=== PATIENT | male | born 1950 | race Caucasian/White ===

== ENCOUNTER 2020-04-28 11:20 | Outpatient (REF) | payer OTHER, SELFPAY ==
[2020-04-28 14:18] LABS: MANUAL DIFF FLAG NO
[2020-04-28 14:26] LABS: Basophils Absolute Auto 0.1 X10*3/uL (0.0-0.2); Basophils Percent Auto 0.8 % (0-2); Eosinophils Absolute Auto 0.2 X10*3/uL (0.0-0.4); Eosinophils Percent Auto 3.8 % (0-4); Hematocrit 40.8 % (42-52); Hemoglobin 13.6 g/dl (14.0-18.0); Imm Gran Abs Auto 0.01 X10*3/uL (0.00-0.03); Imm Gran Pct Auto 0.2 % (0.0-0.4); Lymphocytes Absolute Auto 1.9 X10*3/uL (1.2-4.9); Lymphocytes Percent Auto 31.8 % (20-40); Mean Corpuscular HGB Conc 33.3 g/dl (31.0-36.0); Mean Corpuscular Hemoglobin 30.5 pg (27.0-33.0); Mean Corpuscular Volume 91.5 fL (80-98); Monocytes Absolute Auto 0.5 X10*3/uL (0.1-1.2); Monocytes Percent Auto 7.9 % (2-11); Neutrophils Absolute Auto 3.4 X10*3/uL (2.0-8.3); Neutrophils Percent Auto 55.5 % (45-73); Platelet Count 185 X10*3/uL (160-400); Red Blood Count 4.46 X10*6/uL (4.60-5.80); White Blood Count 6.1 X10*3/uL (4.8-10.8)
[2020-04-28 15:10] LABS: Alanine Aminotransferase 12 U/L (0-40); Albumin Level 4.3 g/dL (3.5-5.0); Alkaline Phosphatase 35 U/L (39-117); Anion Gap 13 (12-20); Aspartate Amino Transferase 13 U/L (5-37); Bilirubin Total 0.8 mg/dL (0.0-1.0); Blood Urea Nitrogen 18 mg/dL (9-16); Carbon Dioxide 26 mmol/L (22-29); Chloride 106 mmol/L (96-108); Cholesterol 158 mg/dL; Estimated Glomerular Filt Rate > 60; Glucose Fasting 94 mg/dL (60-99); HDL Cholesterol 52 mg/dL; LDL Cholesterol Calculated 94 mg/dl; Potassium 5.2 mmol/l (3.3-5.1); Sodium 140 mmol/L (135-145); Total Protein 6.9 g/dL (6.5-8.0); Triglycerides 64 mg/dL
[2020-05-02 12:13] LABS: Testosterone, Total 252 ng/dL (250-1100)
== END 2020-04-28 11:21 | disposition home or self-care (01) ==
LOC: HO.10HDL 11:20
PROVIDERS: Visit Provider Internal Medicine Medical Oncology
DX: N40.1 Benign prostatic hyperplasia with lower urinary tract symptoms (principal); E78.2 Mixed hyperlipidemia; I10 Essential (primary) hypertension; N41.1 Chronic prostatitis; N62 Hypertrophy of breast
CPT/HCPCS: 36415; 80053; 80061; 84403; 85025

== ENCOUNTER 2020-05-22 11:16 | Outpatient (REF) | payer OTHER, SELFPAY ==
--- NOTE | ~2020-05-22 | MM_ITS ---
EXAMINATION: MM DIAGNOSTIC DIGITAL BREAST TOMOSYNTHESIS, BILATERAL US DIAGNOSTIC ULTRASOUND BREAST, LEFT CLINICAL INFORMATION: 69-year-old male with left retroareolar pain and fullness. No prior breast imaging. Family history breast cancer in father, late 60s, status post mastectomy. COMPARISON: None (current study represents initial baseline exam). TECHNIQUE: Digital breast tomosynthesis is performed in both the craniocaudal and mediolateral oblique views along with computer-aided detection (CAD). Synthesized 2D images are generated from the tomosynthesis. Ultrasound left breast is targeted to the retroareolar and periareolar region. Grayscale imaging and color Doppler are performed without and with harmonics. FINDINGS: The breasts are almost entirely fatty (ACR BI-RADS breast composition Category a). There is mild gynecomastia retroareolar left breast. There is no mass or architectural abnormality. Right breast unremarkable. There are no abnormal calcifications. The axilla and skin contours are unremarkable. No skin thickening or retraction. Ultrasound left breast demonstrates no cystic or solid mass, architectural abnormality, or focal duct ectasia. No skin thickening or edema tracking in the soft tissue planes. Results are discussed with the patient at time of visit. MM/MM tomosynthesis diagnostic BI IMPRESSION: 1. Left: Mild benign left gynecomastia. 2. Right: Right breast unremarkable. ASSESSMENT: BI-RADS 2: Benign RECOMMENDATION: 1. Patient's mild left gynecomastia may be managed based on the clinical impression. 2. Annual clinical breast exam, given the family history breast cancer father.
== END 2020-05-22 11:17 | disposition home or self-care (01) ==
LOC: HO.MAMMO 11:16
PROVIDERS: Visit Provider Internal Medicine Medical Oncology
DX: N62 Hypertrophy of breast (principal)
CPT/HCPCS: 76642; 77062; 77066

== ENCOUNTER 2024-10-15 08:26 | Outpatient (REF) | payer OTHER, SELFPAY | END 2024-10-15 08:27 | disposition home or self-care (01) | LOC: HO.LAB 08:26 | PROVIDERS: PCP Internal Medicine Medical Oncology; Visit Provider Urology | DX: N41.1 Chronic prostatitis (principal); N40.1 Benign prostatic hyperplasia with lower urinary tract symptoms; R33.8 Other retention of urine; N39.0 Urinary tract infection, site not specified | CPT/HCPCS: 51798; 81003; 87086 ==

== ENCOUNTER 2024-10-15 08:26 | Outpatient (AMB) | payer OTHER, SELFPAY ==
--- OUTSIDE RECORDS SUMMARY | 2024-09-06 06:15 | XMS_ITS ---
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 Role Phone Jono Mayorga Primary Care Provider Allergies Allergen (clinical drug ingredient) Drug/Non Drug Allergy documented on EMR Reaction Allergy Type Onset Date Status Iodinated contrast media (substance) Iodinated Diagnostic Agents Unknown Drug Allergy Active Floxin Otic Unknown Drug Allergy Activ e REASON FOR VISIT Acute and chronic prostatitis, Urinary tract infection, Benign prostatic hypertrophy Medications Medication SIG (Take, Route, Frequency, Duration) Notes Start Date End Date Status Methenamine Hippurate 1 GM 1 tablet Orally Twice a day Alvogen only 08/23/2024 Active Ciprofloxacin HCl 500 MG 1 tablet Orally every 12 hrs 08/15/2024 Active predniSONE 20 MG 1 tablet Orally Once a day 11/13/2023 Active Acyclovir 400 MG 1 tablet Orally Twic e a day 02/26/2019 Active Methenamine Hippurate 1 GM 1 tablet Orally Twice a day Active Vitamin C 1000 MG 1 tablet Orally Twic e a day Active Simvastatin 10 MG TAKE 1 TABLET EVENINGS Orally Once a day Active Tamsulosin HCl 0.4 MG TAKE 2 CAPSULE 30 MINUTES AFTER THE SAME MEAL EACH DAY 90 DAUS Active Social History Tobacco Use: Social History Observation Description Date Details (start date - stop date) Former Smoker NA - NA Sex Assigned At : Social History Observation Description Sex Assigned At Male Tobacco Control (Standard) Question Answer Notes Tobacco use: Former smoker Vital Signs Height 77 in 09/06/2024 Weight 232 lbs 09/06/2024 BMI 27.51 kg/m2 09/06/2024 Encounters Encounter Location Date Provider Diagnosis Jono Mayorga III, MD [address] [place] [address] [place] [address] 09/06/2024 Jono Mayorga Benign prostatic hyperplasia with lower urinary tract symptoms N40.1 ; Primary insomnia F51.01 ; Essential hypertension I10 ; Mixed hyperlipidemia E78.2 ; Chronic prostatitis N41.1 ; Overweight (BMI 25.0-29.9) E66.3 and Former smoker Z87.891 Assessments Encounter Date Diagnosis (ICD Code) Assessment Notes Treat ment Notes Treatment Clinical Notes 09/06/2024 Benign prostatic hyperplasia with lower urinary tract symptoms (ICD-10 - N40.1) The urinary frequency and dysuria are beginning to improve. He likely has a recurrent prostate infection and will continue the methamphetamine indefinitely. I have encouraged him to see urology when he returns from [place]. 09/06/2024 Primary insomnia (ICD-10 - F51.01) He has adjusted to this and is doing well. We discussed the use of hypnotics and decided that they were not indicated. 09/06/2024 Essential hypertension (ICD-10 - I10) His blood pressure was 127/77. No change in his medications was needed. I recommended aggressive weight loss and sodium restriction. 09/06/2024 Mixed hyperlipidemia (ICD-10 - E78.2) His lipids are stable and no change in his regimen is necessary. 09/06/2024 Chronic prostatitis (ICD-10 - N41.1) He is on an antibiotic for his latest recurrence. He has resumed his mesalamine. He is doing well. He was given an appointment to return to the office after his trip to [place]. 09/06/2024 Overweight (BMI 25.0-29.9) (ICD-10 - E66.3) His body mass index is 27. We have discussed his diet and nutrition. We made a weight loss strategy to lose weight at a rate of one half of a pound per week. 09/06/2024 Former smoker (ICD-10 - Z87.891) He has a plan to prevent relapse in times of stress and illness. Plan Of Treatment Medication Medication Name Sig Start Date Stop Date Notes Methenamine Hippurate 1 GM 1 tablet Oral ly Twice a day 08/23/2024 Alvogen only Ciprofloxacin HCl 500 MG 1 tablet Orally every 12 hrs 08/15/2024 predniSONE 20 MG 1 tablet Orally Once a day 11/13/2023 Acyclovir 400 MG 1 tablet Orally Twic e a day 02/26/2019 Methenamine Hippurate 1 GM 1 tablet Oral ly Twice a day Vitamin C 1000 MG 1 tablet Orally Twic e a day Simvastatin 10 MG TAKE 1 TABLET EVENIN GS Orally Once a day Tamsulosin HCl 0.4 MG TAKE 2 CAPSULE 30 MINUTES AFTER THE SAME MEAL EACH DAY 90 DAUS Next Appt Details Follow Up: As Scheduled, Yani son: Annual Exam Provider Name:Jono Mayorga, 11/19/2024 09:30:00 AM, [address] [place] [address], [address], [place], [address], Progress Notes * MAKAYLA Star WDOB: [birth year] (73 yo M)Acc No.[id number]:09/06/2024 Patient: Star TAYLOR W Provider: Sonia Mayorga MD :1950 A ge:73 Y S ex:Male Date:09/06/2024 Address:[address] [place], [place] [id number] Subjective: * Chief Complaints: * A cute and chronic prostatitisUrinary tract infectionBenign prostatic hypertrophy * HPI: * : He has been taking the antibiotic faithfully and reports that his pelvic pain and dysuria have improved substantially. He will continue on a medication for the duration. He has a supply of antibiotic to take on his trip to [place] which will be given on Monday, September 09, 2024. Telehealth L ocation of provider rendering services: { ...} [address] [facility] [address] L ocation of patient: a ddress listed in demographics for today's visit P atient identification confirmed using: MODESTA Vitale ame T elehealth method: T elephone only. Patient not visible to care provider. C onsent: P atient verbally consented to treatment, Patient verbally consented to billing insurance company, Patient informed of any privacy concerns related to method of visit T otal time spent with patient (mins) 1 5 * ROS: G eneral/Constitutional: pain o nly normal aches and pains. C hills d enies.?Fatigue a dmits. F ever d enies. E NT: Decreased hearing d enies. R espiratory: Cough d enies. C ardiovascular: Chest pain with exertion d enies. D yspnea on exertion?denies. S hortness of breath d enies. G astrointestinal: Constipation d enies. D ecreased appetite d enies.?Diarrhea d enies. H eartburn d enies. N ausea d enies. R ectal bleeding?denies. V omiting d enies. H ematology: bruising d enies. p etechiae d enies. S wollen glands n one have been noted. G enitourinary: Frequent urination t wice a night. M usculoskeletal: Muscle aches d enies. P ainful joints d enies. S ciatica d enies. W eakness d enies. S kin: Itching d enies. R cliff d enies. S kin lesion(s)?denies. N eurologic: Difficulty speaking d enies. D izziness d enies.?Headache d enies. L ow back pain d enies. P sychiatric: Depressed mood d enies. * Medical History: * Surgical History: c ervical mediastinal exploration with lymph node biopsy for sarcoidosis 1981Appendectomy [facility] 10-06-23No history * Hospitalization/Major Diagno stic Procedure: p rostatitis, acute 07/2018No history * Family History: F ather: 90 yrs, History of male breast cancer treated with mastectomy at the age of 60. M other: 76 yrs, Parkinson's disease, aspiration. 1 brother(s) , 1 sister(s) - healthy. 1 son(s) - healthy. . His father has a history of male breast cancer treated with mastectomy at the age of 60. * Social History: T obacco Use: T obacco Control (Standard) T obacco use: F ormer smoker H melvin lives in [place], [place]. 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 He has been to [place] Garcia for 13 years. He has 1 son from a first marriage, Ashish, who is a captain in the [employer]. He was born in [place], [place] and has lived in [place]. He stopped smoking in high school. 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 He doesn't smoke or drink and eats a lot of vegetables from his garden. The patient walks two miles around his farm daily. He had stopped taking statins three months ago when he lost weight. * Medications: T akingSimvastatin 10 MG Tablet TAKE 1 TABLET EVENINGS Orally Once a day Tamsulosin HCl 0.4 MG Capsule TAKE 2 CAPSULE 30 MINUTES AFTER THE SAME MEAL EACH DAY 90 DAUS Vitamin C 1000 MG Tablet 1 tablet Orally Twice a day predniSONE 20 MG Tablet 1 tablet Orally Once a day Methenamine Hippurate 1 GM Tablet 1 tablet Orally Twice a day , Notes to Pharmacist: Kayla onlyTaking Simvastatin 10 MG Tablet TAKE 1 TABLET EVENINGS Orally Once a day Taking Tamsulosin HCl 0.4 MG Capsule TAKE 2 CAPSULE 30 MINUTES AFTER THE SAME MEAL EACH DAY 90 DAUS Taking Vitamin C 1000 MG Tablet 1 tablet Orally Twice a day Taking predniSONE 20 MG Tablet 1 tablet Orally Once a day Taking Methenamine Hippurate 1 GM Tablet 1 tablet Orally Twice a day , Notes to Pharmacist: Alvogen onlyDiscontinuedCiprofloxacin HCl 500 MG Tablet 1 tablet Orally every 12 hrs Acyclovir 400 MG Tablet 1 tablet Orally Twice a day Methenamine Hippurate 1 GM Tablet 1 tablet Orally Twice a day Medication List reviewed and reconciled with the patientDiscontinued Ciprofloxacin HCl 500 MG Tablet 1 tablet Orally every 12 hrs Discontinued Acyclovir 400 MG Tablet 1 tablet Orally Twice a day Discontinued Methenamine Hippurate 1 GM Tablet 1 tablet Orally Twice a day Medication List reviewed and reconciled with the patient * Allergies: F loxin OticIodinated Diagnostic Agentsno[Allergies Verified] Objective: * Vitals: H t: 77, Wt:232, BMI:27.51, Ht-cm: 195.58, Wt-k.23. Assessment: * Assessment: 1. B enign prostatic hyperplasia with lower urinary tract symptoms - N40.1 (Primary) N otes :The urinary frequency and dysuria are beginning to improve. He likely has a recurrent prostate infection and will continue the methamphetamine indefinitely. I have encouraged him to see urology when he returns from [place]. 2 . P rimary insomnia - F51.01 N otes :He has adjusted to this and is doing well. We discussed the use of hypnotics and decided that they were not indicated. 3 . E ssential hypertension - I10 N otes :His blood pressure was 127/77. No change in his medications was needed. I recommended aggressive weight loss and sodium restriction. 4 . M ixed hyperlipidemia - E78.2 N otes :His lipids are stable and no change in his regimen is necessary. 5 . C hronic prostatitis - N41.1 N otes :He is on an antibiotic for his latest recurrence. He has resumed his mesalamine. He is doing well. He was given an appointment to return to the office after his trip to [place]. 6 . O verweight (BMI 25.0-29.9) - E66.3 N otes :His body mass index is 27. We have discussed his diet and nutrition. We made a weight loss strategy to lose weight at a rate of one half of a pound per week. 7 . F ormer smoker - Z87.891 N otes :He has a plan to prevent relapse in times of stress and illness. Plan: * Treatment: 2. O thers Continue Simvastatin Tablet, 10 MG, TAKE 1 TABLET EVENINGS, Orally, Once a day; C ontinue Tamsulosin HCl Capsule, 0.4 MG, TAKE 2 CAPSULE 30 MINUTES AFTER THE SAME MEAL EACH DAY 90 DAUS; C ontinue Vitamin C Tablet, 1000 MG, 1 tablet, Orally, Twice a day; C ontinue predniSONE Tablet, 20 MG, 1 tablet, Orally, Once a day. * Procedure Codes: 9 8012 SYNCH AUDIO-ONLY EST SF 10 * Preventive Medicine: Counseling: C are goal follow-up plan: Counseling for abnormal BMI given Y es Above Normal BMI Follow-up D ietary needs education S moking/Tobacco Use Patient counseled on the dangers of tobacco use and urged to quit. 0 09/06/2024 * Follow Up: A s Scheduled (Reason: Annual Exam) * Images: * Sign off status: Completed true * Provider: Sonia Mayorga MD Date: 0 09/06/2024 Generated for Leonardo chong/Donna/eTransmitting on: 0 10/15/2024 08:31 AM EDT History and Physical Notes * HPI (History of Present Illness) Category Sub-Category Detail Notes Telehealth Location of [facility] rendering services:: {...} [address] [facility] [address] Location of patient:: address listed in demographics for today's visit Patient identification confirmed using:: Name, Telehealth method:: Telephone only. Rona ent not visible to care provider. Consent:: Patient verbally c onsented to treatment, Patient verbally consented to billing insurance company, Patient informed of any privacy concerns related to method of visit Total time spent with patient (mins): 15
--- NOTE | 2024-10-15 08:24 | MHC.OFFVIS ---
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 He is a patient of Dr. Mayorga. He seen for the following urologic conditions - chronic prostatitis Recent flare Triggered by writing on tractor Accompanied by blood in urine 2+ blood in urine today Background of recurrent urinary tract infection Responded well to suppression with vitamin-C and methenamine Using tamsulosin daily Review in 12 months recently published Book on microbiology [facility] Medical History (Updated 10/17/24 @ 15:38 by Les Evans MD) Chronic prostatitis Mixed hyperlipidemia Herpes simplex type 1 infection Benign prostatic hyperplasia Essential hypertension Review of Systems Const Denies chills and Denies fever(s) Card Reports no additional complaints and Denies syncope Resp Denies cough GI Denies abdominal pain and Denies heartburn Reports as per HPI and Denies change in libido Neuro Denies syncope Psych Denies change in libido Endo Denies change in libido Physical Exam Const General: cooperative, healthy appearing, comfortable and no acute distress Orientation/consciousness: patient oriented x3 HEENT Face and sinus: Yes normal facial exam Mouth: moist mucous membranes Neck Neck: Yes normal visual inspection, Yes full ROM and Yes trachea midline Chest Chest palpation & inspection: normal inspection of the chest Resp Effort & Inspection: normal respiratory effort, able to speak in complete sentences and no respiratory distress GI Inspection: Yes normal to inspection Back/Spine/Pelvis Cervical Spine: normal cervical lordosis Thoracic/Lumbar Spine: thoracic and lumbar spine normal to inspection Skin General skin exam: no rashes or lesions noted Neuro General: patient oriented x3, gait normal, tone normal and moves all extremities Extrem General: Yes normal to inspection and Yes capillary refill normal Office Procedures Post Void Residual Post Residual Void Post Void Residual (PVR): 42 [id number]-[id number] Void Residual by ultrasound Results AMB Urinalysis, Automated UA Leukoctes 0 Isadora/uL Last Edit by Maame Sarabia MA on 10/15/24 11:59 UA Nitrite Negative Last Edit by Maame Sarabia MA on 10/15/24 11:59 UA Urobilinogen 3.5 mg/dL Last Edit by Maame Sarabia, [place] on 10/15/24 11:59 UA Protein 0 mg/dL Last Edit by Maame Saraiba, [place] on 10/15/24 11:59 UA pH 6.0 Last Edit by Maame Sarabia, [place] on 10/15/24 11:59 UA Blood 200 Daniel/uL Last Edit by Maame Sarabia, MA on 10/15/24 11:59 UA Specific [place] 1.020 Last Edit by Maame Sarabia, [place] on 10/15/24 11:59 UA Ketone Last Edit by Maame Sarabia, [place] on 10/15/24 11:59 UA Bilirubin 0 mg/dL Last Edit by Maame Sarabia, MA on 10/15/24 11:59 UA Glucose 0 mg/dL Last Edit by Maame Sarabia, [place] on 10/15/24 11:59 Results Reviewed Results Reviewed: Laboratory Last Values Urine pH (Auto) 6.0 10/15/24 11:27 Specific [place] (Auto) 1.020 10/15/24 11:27 Urine Protein (Auto) 0 mg/dL 10/15/24 11:27 Glucose (UA)(Auto) 0 mg/dL 10/15/24 11:27 Urine Blood (Auto) 200 Daniel/uL 10/15/24 11:27 Urine Nitrite (Auto) Negative 10/15/24 11:27 Urine Bilirubin (Auto) 0 mg/dL 10/15/24 11:27 Urine Urobilinogen (Auto) 3.5 mg/dL 10/15/24 11:27 Leukocyte Esterase (Auto) 0 Isadora/uL 10/15/24 11:27 Assessment & Plan Assessment & Plan (1) Chronic prostatitis: Code(s): N41.1 - Chronic prostatitis Category: Medical Plan Corbin yearly Avoid prostatitis triggers Orders: Orders AMB Urinalysis Automated 10/15/24 Z13.9 - Encounter for screening, unspecified Urine Culture 10/15/24 N39.0 - Urinary tract infection, site not specified Patient Instructions: This note is constructed using voice recognition software. 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 Imaging studies, laboratory and physical exam results were discussed and reviewed in detail. No major barriers to patient understanding were identified. An opportunity to ask questions regarding the treatment plan was provided. All questions were answered. The patient expressed understanding and agreement with the above treatment plan. The patient is aware they should contact our office by phone for worsening of their current condition or the appearance of new urologic symptoms. Compliance is encouraged with any medications and followup testing that is ordered. It is a privilege to participate in the urologic care of your patient. If you have any questions or concerns regarding treatment for the above conditions, or other urologic issues, please do not hesitate to contact me. The office telephone contact is [phone]. Sincerely, Dr Les Evans MD, [facility] - Urology Compassionate Specialist Care for the Genitourinary System Coding Diagnoses Chronic prostatitis N41.1 CPT Codes Post Residual Void - PVR CPT Code: 99771-Mhgq Void Residual by ultrasound ([id number])
== END 2024-10-15 09:25 | disposition home or self-care (01) ==
LOC: HO.HUSH 08:26
PROVIDERS: PCP Internal Medicine Medical Oncology; Visit Provider Urology
DX: Z13.9 Encounter for screening, unspecified (principal)